=== PATIENT | male | born 1945 | race Caucasian/White ===

== ENCOUNTER 2017-04-26 07:30 | Inpatient (IN) ==
[~2017-04-26 07:30] MED LIST: ACETAMINOPHEN 500 MG TABLET PO ONE; CLINDAMYCIN PB 900 MG/50 ML BAG IV ONE; DEXAMETHASONE 4 MG/ML INJECTION IVP ONE; FAMOTIDINE PB 20 MG/50 ML BAG IV ONE; LIDOCAINE 1% (10mg/ml) 2mL INJ PF SDV ID ONE; METOCLOPRAMIDE 10mg/2ml INJECTION IVP ONE; ONDANSETRON 4 MG/2 ML INJECTION IVP ONE; TRANEXAMIC ACID 1,000 MG in NS 100 ML IV ONE
--- OUTSIDE RECORDS SUMMARY | 2017-04-26 07:58 | External Medical Summary ---
:1945 Author Organization [employer] Care Team Providers Name Role Phone Gil Lema Provider Role Unavailable Allergies No Known Allergies Problems Problem Type Condition Code Onset Dates Condition Status Problem Abnormal EKG 794.31 Active Problem Pre-operative cardiovascular V72.81 Active examination Problem Left bundle branch block I44.7 Active Problem Dyslipidemia E78.5 Active Problem Nonischemic cardiomyopathy I42.9 Active Problem Abnormal Cardiovascular Study 794.30 Active Problem Left Bundle Branch Block 426.2 Active Problem Cardiomyopathy, Nonischemic 425.4 Active Problem Dyslipidemia 272.4 Active Medications Medication Code System Code Instructions Start Date End Date Status Dosage Lipitor [facility] [address] 40 MG Orally Once October 03, 1 tablet -23 a day 2015 Lisinopril [facility] [address] 2.5 MG Orally 1 tablet -01 Once a day Coreg [facility] [address] 3.125 MG Orally 1 tablet -20 Twice a day Results No Known Results Summary Purpose [facility] Submission
--- OUTSIDE RECORDS SUMMARY | 2017-04-26 07:59 | External Medical Summary ---
:1945 Author Organization [employer] Care Team Providers Name Role Phone Gil [...] 425.4 Active Problem Dyslipidemia 272.4 Active Medications No Known Medications Results No Known Results Summary Purpose [employer] Submission
--- OUTSIDE RECORDS SUMMARY | 2017-04-26 07:59 | External Medical Summary ---
:1945 Author Organization [employer] Care Team Providers Name Role Phone Gil [...] Medications Results No Known Results Summary Purpose [employer] [facility] Submission
[2017-04-26] MEDS ORDERED: EPINEPHrine PF 0.25 MG, BUPIVACAINE 0.25% PF 30 ML, MORPHINE SULFATE 15 MG, KETOROLAC I... OPSITE ONE (08:00)
[2017-04-26 08:14] VITALS: BMI 25.9
[2017-04-26] MEDS: NOZIN NASAL SWAB NAS SCH ×5 (08:54→21:52)
[2017-04-26] MEDS ORDERED: VANCOMYCIN 1,000 MG INJECTION ONE (09:43)
[2017-04-26] MEDS ORDERED: MIDAZOLAM 2mg/2ml INJECTION ONE ×2 (10:19→12:15)
[2017-04-26] MEDS: LR 1,000 ML IV SCH ×2 (10:37→12:34)
[2017-04-26] MEDS ORDERED: VANCOMYCIN 1,000 MG INJECTION IAR ONE (10:57)
[2017-04-26] MEDS ORDERED: PROPOFOL 20 ML ONE ×4 (12:15→13:43)
[2017-04-26] MEDS ORDERED: FentaNYL 250 MCG/5 ML INJECTION ONE (12:32)
[2017-04-26] MEDS ORDERED: SALINE FLUSH 10ml SYRINGE IV PRN (13:00)
--- NOTE | 2017-04-26 13:12 | Anesthesia Preoperative Report ---
Anesthesia Preoperative Record - Date and Time Date: 04/26/17 Preoperative Diagnosis: Lt TKA Rev T84.038A Proposed Procedure: left total knee revision NPO Since Date: 04/25/17 NPO Since Time: 23:00 Allergies/Adverse Reactions: Allergies Allergy/AdvReac Type Severity Reaction Status Date / Time Penicillins Allergy Unknown HIVES Verified 04/26/17 08:22 - Vital Signs Vital Signs: Temperature 97.9 F 04/26/17 08:14 Pulse Rate 68 04/26/17 08:28 Respiratory Rate 14 04/26/17 08:14 Blood Pressure 136/80 04/26/17 08:14 Pulse Oximetry 98 04/26/17 08:14 Height and Weight: Height 6 ft Weight 86.9 kg Body Mass Index 25.9 - Medications Inpatient Medications: Current Medications Sodium Chloride (Normal Saline) 1,000 mls @ 50 mls/hr IV .Q20H [facility] Last Infusion: 04/26/17 10:37 Dose: Infused Lactated Ringer's (Lactated Ringers) 1,000 mls @ 75 mls/hr IV .[id number] [facility] Last Admin: 04/26/17 12:34 Dose: 75 mls/hr Sodium Chloride (Iv Flush) 10 - 80 ml IV PRN PRN PRN Reason: Flushing Home Medications: Home Medications Medication Instructions Recorded Confirmed Type Atorvastatin Calcium 40 mg PO 1930 #0 12/13/15 04/26/17 History Carvedilol 3.125 mg PO BIDWM #0 12/13/15 04/26/17 History Levothyroxine Sodium 150 mcg PO ACB #0 12/13/15 04/26/17 History aspirin 81 mg tablet,delayed 81 mg PO DAILY 03/21/17 04/26/17 History release Lisinopril [Zestril] 2.5 mg PO DAILY 04/04/17 04/26/17 History Multivitamin [One Daily] 1 each PO DAILY 04/04/17 04/26/17 History Psyllium Husk [Metamucil] 1 dose PO DAILY 04/26/17 04/26/17 History Is Patient on Beta Vanessa?: Yes - Medical History Respiratory: DENIES: Sleep Apnea Cardiovascular: Reports: Abnormal EKG (LBBB), Hypertension, High Cholesterol Gastrointestional: Reports: Other (hx diverticulitis, polyps) DENIES: Gastroesophageal Reflux Disease Neuro/Musculoskeletal: Reports: HX.MS.OSAR Renal/Endocrine: Reports: Thyroid Disease Other History: DENIES: Anesthesia Reactions - Surgical History HEENT Surgeries: Reports: Other (full set dentures) Cardiac Surgeries/Treatments: Reports: Cardiac Catheterization (no intervention) Respiratory Surgery/Treatments: Comment Only: CPAP Use (does not use) GI Surgery/Treatments: Reports: Colonoscopy, Other (hemorrhoidectomy; fistula several times) Musculoskeletal Surgery/Tx: Reports: Total Knee Replacement (left ), Other (finger surgery rt hand) Anesthesia Reactions: None Hx Family Anesthesia Reaction: No History of Motion Sickness: No - Social History Smoking Status: Former smoker Hx Chewing Tobacco Use: No Second Hand Exposure: No Substance Use Type: does not use Alcohol Intake Frequency: does not drink - Pertinent Findings Laboratory: CBC and BMP 04/26/17 08:23 BMP 04/26/17 08:23 Sodium 143 Potassium 3.7 Chloride 105 Carbon Dioxide 31 H BUN 25.0 H Creatinine 1.0 Glucose 90 Calcium 9.4 Liver Function 04/26/17 Range/Units 08:23 Total Bilirubin 0.70 (0.20-1.30) MG/DL AST 25 (17-59) U/L ALT 33 (21-72) U/L Alkaline Phosphatase 114 (38-126) U/L Albumin 4.2 (3.5-5.0) G/DL EKG: Sinus Rhythm - Physical Exam Respiratory Exam: Present: lungs clear, bilateral breath sounds equal Cardiovascular Exam: Present: regular rate and rhythm - Airway Assessment Mallampati Score: II TMD: 3 Fingerbreadths Neck Extension: good Teeth: upper dentures, lower dentures Overall Assessment: no airway concerns - ASA ASA Score: 2 - Plan Anesthesia: General TIVA, Neuroaxial Regional/Trunk Block: Spinal - Discussion Discussion: Discussed risks/options/alternatives of anesthesia and questions answered. Patient consents. Nursing pain assessment noted. Present for Discussion: spouse Attestation Statement: Prior to the delivery of any anesthetic medication, I examined the patient, developed the plan, obtained the patient's consent and discussed the risk and benefits of the procedure with the patient/guardian. - Additional Information Seen by Anesthesia: Yes
[2017-04-26] MEDS ORDERED: LIDOCAINE 1% (10mg/ml) 30ml SDV INJ ONE (13:37)
[2017-04-26] MEDS ORDERED: ROPIVACAINE 0.5% (5mg/ml) 30ml INJ ONE (13:37)
--- NOTE | 2017-04-26 14:38 | Anesthesia Postoperative Note ---
- Date and Time Date: 04/26/17 Time: 14:36 - Status Patient Participated in Evaluation: Patient Participated in Person Vital Signs: Temperature 97.3 F 04/26/17 14:15 Pulse Rate 66 04/26/17 14:35 Respiratory Rate 17 04/26/17 14:35 Blood Pressure 125/71 04/26/17 14:35 Pulse Oximetry 95 04/26/17 14:35 Respiratory Function: Airway Patent, Regular Respirations Cardiovascular Function: Regular Pulse Mental Status: Alert and Oriented Pain Intensity: 0 Hydration: IV Infusing Complications During Recover: None Apparent Post Anesthesia Care Notes: moves feet - Follow-Up Instructions Instructions: Per Surgeon
[2017-04-26] MEDS ORDERED: NS 1,000 ML IV SCH (14:45)
--- NOTE | 2017-04-26 14:55 | XRay Report ---
Indication: postoperative image PROCEDURE: XR knee LT 2V: Encounter: Initial Comparison: March 21, 2017 Findings: Postoperative changes of left knee revision are seen with an extended tibial component. There is expected postoperative subcutaneous gas. No evidence of hardware failure or acute fracture. No retained radiopaque surgical instruments or sponges. Overlying material causing artifact. Impression: Revision left knee prosthesis without evidence of immediate complication. .
[2017-04-26] MEDS ORDERED: LORazepam 1 MG TABLET PO PRN (15:09)
[2017-04-26] MEDS ORDERED: Oxycodone *IR* 5 MG TABLET PO PRN (15:09)
[2017-04-26] MEDS ORDERED: NAPROXEN 220 MG TABLET PO PRN (15:09)
[2017-04-26] MEDS ORDERED: DiphenhydrAMINE 25 MG CAPSULE PO PRN (15:09)
[2017-04-26] MEDS ORDERED: NOZIN NASAL SWAB NAS ONE (15:09)
[2017-04-26] MEDS ORDERED: ONDANSETRON 4 MG/2 ML INJECTION IVP PRN (15:09)
[2017-04-26] MEDS ORDERED: DiphenhydrAMINE 50 MG/ML INJECTION IVP PRN (15:09)
[2017-04-26] MEDS: NS 1,000 ML IV SCH (15:16)
[2017-04-26] MEDS ORDERED: PNEUMOCOCCAL 23 VACCINE 0.5ml INJECTION IM ONE (15:43)
[2017-04-26] MEDS: DEXAMETHASONE 20 MG/5 ML INJECTION IVP SCH ×2 (16:27→22:12)
[2017-04-26] MEDS: ACETAMINOPHEN 325 MG TABLET PO SCH ×2 (16:27→20:21)
[2017-04-26] MEDS: CARVEDILOL 3.125 MG TABLET PO SCH (16:41)
[2017-04-26] MEDS: CLINDAMYCIN PB 900 MG/50 ML BAG IV SCH ×2 (19:15→23:38)
[2017-04-26] MEDS ORDERED: ATORVASTATIN 40 MG TABLET PO SCH (19:30)
[2017-04-26] MEDS: ASPIRIN *EC* 81 MG TABLET PO SCH (20:21)
[2017-04-26] MEDS: DOCUSATE SODIUM 100 MG CAPSULE PO SCH (20:21)
[2017-04-26] MEDS ORDERED: SENNOSIDES 8.6 MG TABLET PO SCH (21:00)
[2017-04-27] MEDS: CLINDAMYCIN PB 900 MG/50 ML BAG IV SCH (04:31)
[2017-04-27] MEDS: NS 1,000 ML IV SCH (04:32)
[2017-04-27] MEDS: NOZIN NASAL SWAB NAS SCH ×2 (04:33→05:12)
[2017-04-27] MEDS ORDERED: LEVOTHYROXINE 150 MCG TABLET PO SCH (06:30)
[2017-04-27 08:07] VITALS: O2SAT 100
[2017-04-27] MEDS ORDERED: LISINOPRIL 2.5 MG TABLET PO SCH (09:00)
[2017-04-27] MEDS ORDERED: POLYETHYL GLYCOL 3350 17gm PACKET PO SCH (09:00)
[2017-04-27] MEDS: ACETAMINOPHEN 325 MG TABLET PO SCH ×2 (09:07→12:16)
[2017-04-27] MEDS: CARVEDILOL 3.125 MG TABLET PO SCH (09:09)
[2017-04-27] MEDS: DOCUSATE SODIUM 100 MG CAPSULE PO SCH (09:10)
[2017-04-27] MEDS: ASPIRIN *EC* 81 MG TABLET PO SCH (09:11)
--- NOTE | 2017-04-27 10:04 | Operative Note ---
DATE OF PROCEDURE 04/26/2017 PREOPERATIVE DIAGNOSIS Left total knee arthroplasty aseptic loosening. POSTOPERATIVE DIAGNOSIS Left total knee arthroplasty aseptic loosening. PROCEDURE Revision left total knee arthroplasty, tibial component. SURGEON Adam Queen MD GUN SEALING MACHINE OPERATOR Rafael Swift PA-C COMPLICATIONS None. ANESTHESIA Spinal EBL, FLUIDS AND TOURNIQUET TIME Please see Anesthetic Records. DESCRIPTION OF PROCEDURE Mr. Sahu and his left knee were identified and marked in the preoperative holding area. He was brought back to the operating suite and spinal anesthetic was administered. He was placed in the supine position. The left lower extremity was prepped and draped in my normal sterile fashion. Time-out was performed. I utilized the previous anterior midline incision. This was followed by a medial parapatellar arthrotomy. I did extend the arthrotomy proximally to help with exposure. Anterior scar tissue was removed as well as scar tissue around the patella. There was no obvious sign of complication. I did assess the femur. It did not show any signs of loosening. I checked its stability also with a Mirian and it felt great. I then removed the plastic spacer and cleared tissue around the tibial baseplate and then began to loosen the tibia with a series of osteotomes as well as with a sagittal saw. It was rather difficult to remove the tibia, but we were able to eventually get it out with a tamp. When it came out there was bone still attached as well as cement laterally but really no signs of any attachment of either bone or cement medially. There was very little bone loss, just laterally centrally, otherwise minimal bone loss. I then proceeded to remove the remaining cement from the canal. I then reamed to a 17 reamer in planning for a 150 mm stem. A 17 fit well. A tibial guide was placed and a freshen up cut was performed, removing really only probably 2 mm of bone. Trial components were placed using a 5 mm tibia. Offset guide showed the best fit with a 2 mm anterior offset. The tibia was then drilled for the Boss and punched and a trial was assembled with 125 mm stem with a 25 mm offset. This fit well. The final components were then assembled on the back table. The bone was prepared for cementing and tibial component was then cemented into place with a 13 mm trial spacer and allowed to cure in extension. Joint cocktail was injected throughout the soft tissues at the time. Betadine wash was also used and fully irrigated out. After the cement had cured , we took it through a range of motion. He tracked well. He was nice and stable in extension. He did have increased laxity in flexion compared to before surgery but still nice and stable with no significant anterior or posterior drawer sign. After final irrigation, a final 16 mm spacer was placed. One gram of vancomycin powder was then placed in the wound. The capsulotomy was repaired with #1 Vicryl. Subcutaneous tissue was closed with 2- 0 Vicryl. The skin was closed with a running 4-0 Monocryl followed by a sterile dressing. The drapes were removed and he was taken back to the recovery room under the care of Anesthesia. He tolerated the procedure well. There were no complications. АНДРЕЙ
[2017-04-27] MEDS ORDERED: PNEUMOCOCCAL 23 VACCINE 0.5ml INJECTION IM ONE (12:00)
[2017-04-27 12:26] VITALS: BP 123/68; PULSE 72; RESP 16; TEMP 98.3
--- NOTE | 2017-04-27 12:42 | Discharge Summary ---
Orthopedic Discharge Info Date of admission: 04/26/17 07:51 Primary care physician: Ricco Almaguer MD Attending Physician: Adam Queen MD Consults: 04/26/17 08:01 Consult to Anesthesiology [CONS] Routine Reason For Exam: Preoperative Assessment 04/26/17 15:09 Case Management Consult [CONS] Routine Reason For Exam: Discharge Planning DME-Walker [CONS] Routine Height: 6 ft Weight: 191 lb 9.307 oz Total Joint Outpatient Therapy [CONS] Routine Comment: Remove dressing in 2 weeks - Procedures Procedures: Procedures Left knee revision of tibial component. - Laboratory Result Diagrams: 04/27/17 04:05 04/27/17 04:05 Laboratory: Abnormal lab results 04/27/17 04/27/17 Range/Units 04:05 04:05 Hgb 12.5 L (13.5-17.5) GM/DL Hct 37.8 L (41-53) % BUN 28.0 H (9-20) MG/DL BUN/Creatinine Ratio 31 H (6-26) RATIO Glucose 144 H (75-110) MG/DL H & H 04/27/17 Range/Units 04:05 Hgb 12.5 L (13.5-17.5) GM/DL Hct 37.8 L (41-53) % Orthopedic Discharge HPI - HPI Comments This patient was admitted for elective surgical tx of end stage degenerative joint disease that failed to respond to conservative treatment. Further details of this is found in the admission H&P. Orthopedic Hospital Course Hospital course: 04/27/17 12:39 After appropriate preoperative clearance and signing of operative consent, the patient was given IV antibiotics, according to orthopedic protocol. The patient was taken to the operating room and underwent elective joint arthroplasty. Following surgery, antibiotics were discontinued less than 24 hours according to joint protocol. Appropriate anticoagulants were initiated and SCDs added for DVT prevention. The dressing was clean, dry, and intact. Pain control was obtained via multimodal approach. Bowel motivation addressed with scheduled and PRN medications. Early mobilization was initiated through PT services. Discharge arrangements made by a collaborative effort between the patient and Case Management. He did bleed through his dressing P/O day one. The dressing was changed and jorge were used to stop the bleeding. Follow-up is scheduled in 2-3 weeks. Discharge instructions given by orthopedic providers and nursing staff at discharge. Discharge condition was good. 04/27/17 12:42 Care extended to > 2 midnight stays?: No Discharge Plan - Med Rec/Dispo Referrals/Follow Up: Adam Queen MD [Physician] - 05/21/17 8:45 am [place] Instructions: [facility] [place] Additional Instructions: [facility] ON 04/30/2017 AT 10:30AM FOR PHYSICAL THERAPY EVAL. PLEASE COMPLETE THE PAPERWORK IN THE [facility] PRIOR TO THE APPOINTMENT. PHONE [phone] Prescriptions: New Aspirin *EC* [Ecotrin] 81 mg PO BID #84 tab Acetaminophen [Tylenol] 650 mg PO QID tablet Oxycodone *IR* [Roxicodone *Ir*] 5 - 15 mg PO Q3H PRN #15 tab PRN Reason: Breakthrough Pain PEG 3350 17gm PACKET [Miralax] 17 gm PO DAILY packet Naproxen [Aleve] 440 mg PO BID PRN tablet PRN Reason: Pain Continue Atorvastatin Calcium 40 mg PO 1930 #0 Carvedilol 3.125 mg PO BIDWM #0 Levothyroxine Sodium 150 mcg PO ACB #0 Lisinopril [Zestril] 2.5 mg PO DAILY Psyllium Husk [Metamucil] 1 dose PO DAILY ergocalciferol (vitamin D2) 50,000 unit capsule 50,000 unit PO DAILY #2 cap aspirin 81 mg tablet,delayed release 81 mg PO DAILY Discontinued Multivitamin [One Daily] 1 each PO DAILY - Disposition 01 Discharged Home, Self-Care - Dismissal Complete Discharge Instructions are:: Complete
--- NOTE | 2017-04-27 12:50 | Orthopedic Progress Note ---
Date: Date: 04/27/17 Time: 1247 Subjective/Severity of Illness: Roni has no complaints. Rafael changed his dressing this AM due to drainage and applied multiple jorge. This afternoon his dressing is dry. His garcia is controlled only with Tylenol. I did convince him to take a small amount of Roxicodone with him home so he has a "bailout plan" if his pain is elevated over the weekend. He denies chest pain, shortness of breath or paraesthesias. He is ready to discharge home. Orthopedic Objective PO Vital signs: Temperature 98.3 F 04/27/17 12:25 Pulse Rate 72 04/27/17 12:25 Respiratory Rate 16 04/27/17 12:25 Blood Pressure 123/68 04/27/17 12:25 Pulse Oximetry 100 04/27/17 12:25 Height and Weight: Height 6 ft Weight 202 lb 13.204 oz Body Mass Index 25.9 - Constitutional General Appearance: Present: alert, orientated x3, no acute distress - Respiratory Exam Present: non-labored - Cardiovascular Exam Present: pedal pulses intact Capillary Refill: < 2-3 Seconds - Abdominal Exam Absent: tenderness - Extremities Exam Extremities: Present: pulses intact. Absent: calf tenderness - Knee Exam Knee Exam: Present: effusion (as normal post op) - Surgical Site Incision: clean, dry, intact, Mepilex dressing intact - Integumentary Exam Present: pink, warm, dry - Lymphatic Lymphatic: Absent: lymphedema - Neurological Exam Present: intact to light touch - Psychiatric Exam Present: normal affect - Labs Result Diagrams: 04/27/17 04:05 04/27/17 04:05 Abnormal lab results 04/27/17 04/27/17 Range/Units 04:05 04:05 Hgb 12.5 L (13.5-17.5) GM/DL Hct 37.8 L (41-53) % BUN 28.0 H (9-20) MG/DL BUN/Creatinine Ratio 31 H (6-26) RATIO Glucose 144 H (75-110) MG/DL H & H 04/27/17 Range/Units 04:05 Hgb 12.5 L (13.5-17.5) GM/DL Hct 37.8 L (41-53) % Orthopedic Assessment and Plan (1) History of total left knee replacement (TKR) Status: Acute (2) Loosening of knee joint prosthesis Status: Acute Assessment and Plan: s/p revision of the tibial component ASA for DVT prevention Follow up as already set up. - Anticoagulation Therapy Anticoagulation: ASA 81 mg PO BID x6 weeks Hospital Course Summary Disclaimer: The visit summary below is not to be considered part of the above Progress Note.
[2017-04-27] MEDS ORDERED: PNEUMOCOCCAL VAC ADMIN CHARGE INJ ONE (13:44)
[2017-04-27] MEDS ORDERED: SENNOSIDES 8.6 MG TABLET PO PRN (14:07)
[2017-04-28] MEDS ORDERED: BISACODYL 10 MG SUPPOSITORY RECTALLY SCH (20:00)
== END 2017-04-27 13:45 | disposition home or self-care (01) | DRG 468 ==
LOC: NMC.PERIOP 07:51 → SRG 15:03
PROVIDERS: ADMIT Orthopaedic Surgery; ATTEND Orthopaedic Surgery